=== PATIENT | female | born 1990 | race Caucasian/White ===

== ENCOUNTER 2020-03-09 12:54 | Emergency (ER) | payer OTHER ==
[~2020-03-09] VITALS: Ht 154.9 cm; Wt 68.0 kg
[2020-03-09 13:18] VITALS: Ht 154.9 cm; Wt 68.0 kg
[2020-03-09 17:12] VITALS: BP 112/72
== END 2020-03-09 17:12 | disposition home or self-care (01) ==
LOC: ED 12:54
DX: M54.5 Low back pain (principal); M62.830 Muscle spasm of back; G89.29 Other chronic pain
CPT/HCPCS: J1885; Q0092